=== PATIENT | male | born 1960 | race Caucasian/White ===

== ENCOUNTER 2017-01-19 05:40 | Inpatient (IN) | payer OTHER ==
[2017-01-04 12:09] VITALS: Ht 177.8 cm; Wt 94.6 kg
--- NOTE | 2017-01-04 12:43 | PAT Medication Instructions ---
Service Date Jan 04, 2017. Current Home Medication List Ascorbic Acid (Vitamin C), 1,000 MG PO QAM Aspirin (Aspirin Ec), 81 MG PO Q2D Cholecalciferol (Vitamin D3), 1 TAB PO QAM Fish Oil ([place]-3), 1 CAP PO QAM Flaxseed (Linseed) (Flaxseed Oil), 1,000 MG PO QAM Garlic (Garlic), 1 TAB PO QAM Doris (Zingiber Officinalis) (Doris Root), 550 MG PO QAM Multivitamin (Multivitamin), 1 TAB PO QAM Omeprazole (Prilosec), 40 MG PO QAM Thiamine Hcl (Vitamin B1), 250 MG PO QAM Vitamin A (Vitamin A), 8,000 UNITS PO QAM Vitamin E (Alph-E), 400 UNITS PO QAM [Folic Acid], 400 MCG PO QAM [Selenium], 200 MCG PO QAM [Zestoretic], 1 TAB PO QAM Medication Instructions For Your Scheduled Surgery - Hold the following medications 2 weeks prior to surgery: Vitamin E (Alph-E), 400 UNITS PO QAM Fish Oil ([place]-3), 1 CAP PO QAM Flaxseed (Linseed) (Flaxseed Oil), 1,000 MG PO QAM Garlic (Garlic), 1 TAB PO QAM Doris (Zingiber Officinalis) (Doris Root), 550 MG PO QAM [Selenium], 200 MCG PO QAM - Hold the following medications the morning of surgery: Ascorbic Acid (Vitamin C), 1,000 MG PO QAM [Folic Acid], 400 MCG PO QAM Cholecalciferol (Vitamin D3), 1 TAB PO QAM Thiamine Hcl (Vitamin B1), 250 MG PO QAM Vitamin A (Vitamin A), 8,000 UNITS PO QAM Multivitamin (Multivitamin), 1 TAB PO QAM [Zestoretic], 1 TAB PO QAM - Take the following medications the morning of surgery with a sip of water OTHERWISE NOTHING TO EAT OR DRINK AFTER MIDNIGHT: Aspirin (Aspirin Ec), 81 MG PO Q2D Omeprazole (Prilosec), 40 MG PO QAM If you have any questions please call us at [phone] or [phone] or [phone]
--- NOTE | 2017-01-04 13:16 | DIAGNOSTIC IMAGING REPORT ---
CHEST PREADMISSION(PA/LAT) HISTORY:56 yearsMalepreoperative exam. COMPARISON: None available. TECHNIQUE: Frontal and lateral views of the chest. FINDINGS: Cardiomediastinal and hilar silhouettes are within normal limits. There is no pneumothorax, pleural effusion, focal airspace consolidation or overt pulmonary edema. Lungs are mildly hyperinflated. Multilevel degenerative spurring involves the spine. IMPRESSION: Mild hyperinflation without acute cardiopulmonary process. The above report was generated using voice recognition software. It may contain grammatical, syntax or spelling errors. Electronically signed by: Evan Dalton M.D. 01/04/2017 1:15 PM Dictated Date/Time: 01/04/2017 1:14 PM
[2017-01-04 13:38] LABS: URINE APPEARANCE CLEAR (CLEAR); URINE BILIRUBIN NEG (NEG); URINE COLOR YELLOW; URINE NITRITE NEG (NEG); URINE PH 5.5 (4.5-7.5); URINE SPECIFIC GRAVITY 1.016 (1.000-1.030); UROBILINOGEN NEG (NEG)
[2017-01-04 13:39] LABS: BASO % 0.4 %; BASO ABS # 0.02 K/uL (0-0.2); COMPLETE YES; EOS % 3.3 %; HEMATOCRIT 45.3 % (42-52); IG% 0.6 %; LYMPH % 43.1 %; LYMPH ABS # 2.33 K/uL (1.2-3.4); MEAN CELL VOLUME 87.8 fL (80-100); MEAN CORPUSCULAR HEMOGLOBIN 30.2 pg (25-34); MEAN CORPUSCULAR HGB CONC 34.4 g/dl (32-36); MEAN PLATELET VOLUME 9.7 fL (7.4-10.4); MONO % 9.1 %; NEUT % 43.5 %; PLATELET COUNT 237 K/uL (130-400); RED BLOOD COUNT 5.16 M/uL (4.7-6.1)
[2017-01-04 13:45] LABS: MANUAL MICROSCOPIC REQUIRED? NO; REVIEW REQ? NO
[2017-01-04 14:34] LABS: BUN/CREATININE RATIO 17.3 (10-20); CALCIUM 9.2 mg/dl (8.5-10.1); POTASSIUM 3.7 mmol/L (3.5-5.1)
[~2017-01-19] VITALS: Ht 177.8 cm; Wt 94.6 kg
[2017-01-19] VITALS (13 sets, daily range): BP systolic 124–150; BP diastolic 76–94; PULSE 62–97; TEMP 36.4–36.9; O2SAT 93–98
[~2017-01-19 05:40] MED LIST: ASCO10003 PO; ASPI81TA28 PO; CHOL1000 PO; FLAX100024 PO; FOLIC ACID PO; GARL10007 PO; GING550C PO; MULT-506 PO; OMEG10007 PO; PRLSR20 PO; SELENIUM PO; THIA250T7 PO; VITA400C28 PO; VITA80005 PO; ZESTORETIC PO
[2017-01-19] MEDS ORDERED: LACTATED RINGER'S 1000ML 1,000 ML IV SCH (06:00)
[2017-01-19] MEDS ORDERED: CEFAZOLIN 2000 MG/60 ML D5W IV SCH (06:00)
[2017-01-19] MEDS ORDERED: ONDANSETRON INJ 2 MG/ML 2 ML VIAL IV PRN ×2 (06:45→10:00)
[2017-01-19] MEDS ORDERED: ATROPINE SULFATE 0.1 MG/ML 5ML SYR IV PRN (06:45)
[2017-01-19] MEDS ORDERED: EpHEDrine SULFATE INJ 50 MG/ML AMP IV PRN (06:45)
--- NOTE | 2017-01-19 07:28 | History & Physical Bridge Note ---
H&P Re-Evaluation Bridge Note: I have examined the patient, reviewed the History & Physical and in the interval since the performance of the History & Physical I have noted the following changes of clinical significance: No changes noted
--- NOTE | 2017-01-19 07:29 | History and Physical ---
History & Physical Date Jan 19, 2017. Chief Complaint neck and arm pain History of Present Illness The patient is a 56 year old male with complaints of Additional History Hepatic Disease: No Endocrine Disorder: No Kidney Disease: No Hypertension: No Heart Disease: No Bleeding Tendencies: No Infectious Diseases: No Allergies Coded Allergies: No Known Allergies (Unverified , 01/19/17) Home Medications Scheduled Ascorbic Acid (Vitamin C), 1,000 MG PO QAM Aspirin (Aspirin Ec), 81 MG PO Q2D Cholecalciferol (Vitamin D3), 1 TAB PO QAM Fish Oil ([place]-3), 1 CAP PO QAM Flaxseed (Linseed) (Flaxseed Oil), 1,000 MG PO QAM Garlic (Garlic), 1 TAB PO QAM Doris (Zingiber Officinalis) (Doris Root), 550 MG PO QAM Multivitamin (Multivitamin), 1 TAB PO QAM Omeprazole (Prilosec), 40 MG PO QAM Thiamine Hcl (Vitamin B1), 250 MG PO QAM Vitamin A (Vitamin A), 8,000 UNITS PO QAM Vitamin E (Alph-E), 400 UNITS PO QAM [Folic Acid], 400 MCG PO QAM [Selenium], 200 MCG PO QAM [Zestoretic], 1 TAB PO QAM Physical Examination Skin: warm/dry, no rash Eyes: normal inspection, EOMI, sclerae normal ENT: normal ENT inspection, pharynx normal Head: normocephalic, atraumatic Neck: supple, no adenopathy, trachea midline Respiratory/Chest: lungs clear, normal breath sounds, no respiratory distress Cardiovascular: regular rate, rhythm, no edema, no murmur Abdomen / GI: normal bowel sounds, non tender Back: normal inspection Extremities: normal inspection, normal range of motion Neurologic/Psych: no motor/sensory deficits, alert, normal reflexes, oriented x 3 Diagnosis cervical stenosis Plan of Treatment corpectomy C6 acdf C7-T1 fusion C5-T1
[2017-01-19] MEDS ORDERED: SODIUM CHLORIDE 0.9% PF 50 ML VIAL ONE (07:34)
[2017-01-19] MEDS ORDERED: BACITRACIN 50000 UNIT VIAL ONE (07:34)
[2017-01-19] MEDS ORDERED: FENTANYL CITRATE INJ 50 MCG/1 ML 2 ML VIAL ONE (07:37)
[2017-01-19] MEDS ORDERED: DEXAMETHASONE SOD INJ 4 MG/ML VIAL ONE (07:37)
[2017-01-19] MEDS ORDERED: LIDOCAINE HCL 2% 2 ML VIAL (20MG/ML) ONE (07:37)
[2017-01-19] MEDS ORDERED: NEOSTIGMINE METHYLSULFATE 1 MG/ML 10ML VIAL ONE ×2 (07:37→09:50)
[2017-01-19] MEDS ORDERED: ROCURONIUM BROMIDE 10 MG/ML 5 ML VIAL ONE (07:37)
[2017-01-19] MEDS ORDERED: ONDANSETRON INJ 2 MG/ML 2 ML VIAL ONE ×2 (07:37→09:50)
[2017-01-19] MEDS ORDERED: PROPOFOL IV EMULSION 10 MG/ML 20 ML VIAL IV ONE (07:37)
[2017-01-19] MEDS ORDERED: MIDAZOLAM HCL 1 MG/ML 2ML VIAL ONE (07:37)
[2017-01-19] MEDS ORDERED: GLYCOPYRROLATE INJ 0.2 MG/ML VIAL ONE ×2 (07:37→09:50)
[2017-01-19] MEDS ORDERED: HYDROmorphone INJ 2 MG/ML SYR/VIAL ONE ×2 (07:55→09:49)
[2017-01-19] MEDS ORDERED: FLOSEAL HEMOSTATIC MATRIX 5ML TOP ONE ×2 (09:50→09:51)
[2017-01-19] MEDS ORDERED: PHENYLEPHRINE 100MCG/ML 5ML SYR ONE (09:50)
[2017-01-19] MEDS ORDERED: NALOXONE HCL 0.4 MG/1 ML VIAL/CARP IV PRN (10:00)
[2017-01-19] MEDS ORDERED: MAGNESIUM HYDROXIDE SUSP 30 ML UDC PO PRN (10:00)
[2017-01-19] MEDS ORDERED: HYDROmorphone INJ 0.5 MG/0.5 ML SYR IV PRN (10:00)
[2017-01-19] MEDS ORDERED: DO NOT ADMINISTER FLU VACCINE PRN ×3 (10:00)
[2017-01-19] MEDS ORDERED: DO NOT ADMINISTER PNEUMOCOCCAL VACCINE PRN ×2 (10:00)
[2017-01-19] MEDS ORDERED: RACEPINEPHRINE 2.25% NEBU SOLN 0.5 ML VIAL INH PRN (10:00)
[2017-01-19] MEDS ORDERED: LORAZEPAM 0.5 MG TAB PO PRN (10:00)
[2017-01-19] MEDS ORDERED: DiphenhydrAMINE HCL 50 MG/ML VIAL IV PRN (10:00)
[2017-01-19] MEDS ORDERED: LORAZEPAM INJ 0.5 MG in SYRINGE 0.75 ML IV PRN (10:00)
[2017-01-19] MEDS ORDERED: DEXAMETHASONE INJ 8 MG in SYRINGE 0 ML IV PRN (10:00)
[2017-01-19] MEDS ORDERED: ACETAMINOPHEN IV 1,000 MG in EMPTY BAG 0 ML IV PRN (10:00)
--- NOTE | 2017-01-19 10:00 | [facility] Operative Report ---
Operative Report Operative Date Jan 19, 2017. Pre-Operative Diagnosis Cervical Spinal Stenosis Post-Operative Diagnosis Same as preoperative. Procedure(s) Performed #1 anterior cervical corpectomy bilateral foraminotomies C7. #2 anterior cervical discectomy with bilateral foraminotomies C5 6. #3 anterior cervical arthrodesis C5 6 and C6 to T1. #4 placement peek cage 7 mm at C5 6 and 27 mm C6 to T1. #5 placement of locally harvested morcellized autograft combined with Luda bone graft in the interbody cages. #6 application of jasmine plate and screws from C5 to T1. Surgeon Network Analyst Surgeon(s) Roselyn Sánchez PA-C Estimated Blood Loss 100ML Findings Severe spinal stenosis with herniated nucleus pulposus Specimens None per surgeon Description of Procedure Patient was met with preoperative early case discussed all questions are dressed. The patient was taken back to the operative suite and after undergoing successful intubation placed in the supine position on the Conrad table head in [place] import coordination and production head. The anterior cervical spine was prepped and draped in normal sterile fashion. The assistance of fluoroscopy identified the C6 7 disc space and a transverse incision was placed on the right anterior aspect of cervical spine overlying this region. Sharp dissection with the assistance of bipolar cautery performed onto an exposing the anterior cervical spine from C 5 to T1. Self-retaining retractors placed. Then performed a complete discectomy C7 T1 out to the uncovertebral joints bilaterally. And I attempted to address all of the disc herniation both in the foramina and components that had migrated cephalad elected to perform the corpectomy of C7 for adequate decompression. Socially a proceeded to perform a complete discectomy of C6 7 out to the uncovertebral joints bilaterally. [place] distracting pins were placed in C6 and T1. Complete corpectomy of C7 was then performed allowing us to adequately decompress the canal and foramina. An plates with an burden subcortical bleeding bone and a 27 mm peek cage filled with local harvested morcellized autograft and Luda bone grafting tapped in position. The distraction apparatus was removed and I proceeded to C5 6. A complete discectomy performed out to the uncovertebral joints laterally. And again include removal of all posterior inner fibrous longitudinal ligament and bilateral foraminotomies. A 7 mm peek cage filled with locally harvested morcellized autograft and Luda bone graft tapped in position. All distracting apparatus was removed all anterior osteophytes burred to smooth cortical surface and a jasmine plate and screws applied with the assistance of fluoroscopy. Incision was in copious irrigated explored to ensure there was no damage to surrounding structures remaining bleeding. A 10 round ALYSHA drain inserted. Incision then closed with 2 Vicryl in the fascia 4-0 Monocryl for final skin closure Steri-Strip sterile dressing placed patient we can taken to PACU stable condition. Please note Roselyn Antunez was present throughout the entire procedure involved in patient positioning complex portions of the procedure and final skin closure. I attest to the content of the Intraoperative Record and any orders documented therein. Any exceptions are noted below.
[2017-01-19] MEDS: FENTANYL CITRATE INJ 50 MCG/1 ML 2 ML VIAL IV PRN ×2 (10:14→10:21)
[2017-01-19] MEDS: MoRPHine SULFATE 10 MG/ML CARP/VIAL IV PRN ×3 (10:29→10:51)
--- NOTE | 2017-01-19 10:46 | DIAGNOSTIC IMAGING REPORT ---
CERVICAL 2 OR 3 VIEWS CLINICAL HISTORY: 56 years-old Male presenting with C6 CORPECTOMY, C7-T1 ACDF. TECHNIQUE: 4 fluoroscopic spot image(s) obtained as part of intraoperative procedure. COMPARISON: None. FINDINGS/IMPRESSION: Frontal and lateral views of the cervical spine obtained intraoperatively demonstrate anterior cervical discectomy and fusion of C5-T1. Interbody spacer noted at C5-6. Anatomic alignment maintained. Please see surgical report for further details. Fluoroscopy dosage (mGy): Not available. Fluoroscopy time: 21 seconds. Number of fluoroscopic spot images: 4. Electronically signed by: Rashaun Lomax M.D. 01/19/2017 10:45 AM Dictated Date/Time: 01/19/2017 10:44 AM
[2017-01-19] MEDS ORDERED: ESMOLOL HCL 10 MG/ML 10 ML VIAL ONE (10:50)
--- NOTE | 2017-01-19 11:50 | Anesthesiology Progress Note ---
Anesthesia Post Op Note Date & Time Jan 19, 2017 at 11:50 Vital Signs Pain Intensity: 4 Vital Signs Past 12 Hours Date Time Temp Pulse Resp B/P (MAP) Pulse Ox O2 Delivery O2 Flow Rate FiO2 01/19/17 11:15 68 13 132/83 94 Nasal Cannula 4 01/19/17 11:00 36.0 70 13 148/86 94 Nasal Cannula 4 01/19/17 10:50 68 13 154/94 93 Nasal Cannula 4 01/19/17 10:40 69 12 148/88 93 Nasal Cannula 4 01/19/17 10:30 75 16 155/97 93 Nasal Cannula 4 01/19/17 10:20 82 14 156/105 96 Oxymask 10 01/19/17 10:10 79 17 158/102 97 Oxymask 10 01/19/17 10:02 36.0 83 16 148/97 94 Oxymask 10 01/19/17 06:28 36.8 64 18 147/93 98 Room Air Notes Mental Status: alert / awake / arousable, participated in evaluation Pt Amnestic to Procedure: Yes Nausea / Vomiting: adequately controlled Pain: adequately controlled Airway Patency, RR, SpO2: stable & adequate BP & HR: stable & adequate Hydration State: stable & adequate Anesthetic Complications: no major complications apparent
[2017-01-19] MEDS ORDERED: HYDROmorphone INJ 1 MG/ML SYR ONE (12:16)
[2017-01-19] MEDS ORDERED: RXC5 PO (13:03)
--- NOTE | 2017-01-19 13:03 | Discharge Instructions ---
Discharge Instructions Date of Service Jan 19, 2017. Admission Reason for Admission: Spinal Stenosis Discharge Discharge Diagnosis / Problem: stenosis Discharge Goals Goal(s): Improve function Activity Recommendations Activity Limitations: per Instructions/Follow-up section . Instructions / Follow-Up Instructions / Follow-Up ACTIVITY RECOMMENDATIONS: SELF CARE INSTRUCTIONS AFTER CERVICAL FUSIONS 1. No smoking. Smoking drastically decreases the chance of a solid fusion. 2. No bending, lifting more than 5 pounds, or twisting (roll like a log when turning in bed). 3. You may shower 3 days after surgery. Thoroughly dry wound. Do not soak in the tub. 4. Cervical collar: Must be worn at all times including sleeping. You may remove the brace only to bath, eat and if you are sitting in a recliner. 5. Please walk as much as you can for exercise. Gradually increase the distance that you walk as your endurance increases. SPECIAL CARE INSTRUCTIONS: VERY IMPORTANT TO READ AND REVIEW A. Do not take any anti-inflammatory medications (i.e. Indocin, Advil, Aspirin, Naprosyn, Aleve, Motrin, etc.) as these may inhibit the chance of a solid fusion. Tylenol is okay to take. B. Your surgical incision has been closed with a cosmetic suture under the skin that will dissolve in about 6 weeks. In 14 days, you can use a pair of clean scissors and cut the suture that is left outside of the skin at the ends of your incision. C. Complications are uncommon, but please contact us if you have any signs or symptoms of: 1. wound infection (fever higher than 102.5 degrees F, redness, separation of wound, drainage, or increasing pain from the incision) 2. blood clots in legs (pain, swelling, redness and warmth in legs) 3. urinary tract infection (fever higher than 102.5 degrees, burning upon urination or increased frequency of urination) 4. nerve problems (inability to walk on your toes or heels, numbness, loss of bowel or bladder control) 5. any other symptoms that concern you. D. Please call the office at if you have any concerns or questions about your operation or recovery. MANAGING PAIN AFTER SPINAL SURGERY 1. Narcotic medication is intended for short-term use and will be provided for surgical pain. Surgical pain usually lasts for a period of 4-6 weeks. Narcotic medication includes Percocet, Vicodin, Darvocet, Tylenol #3 or Lortab. 2. Longer-term pain is more appropriately treated with non-narcotic medication such as Tylenol ES. 3. Muscle spasm is not appropriately treated with narcotics. Muscle relaxers such as Soma, Flexeril or Skelaxin can be used along with Tylenol ES. 4. Remember that we all live with some "aches and pains". This is not unusual or uncommon after an injury or as we get older. 5. We will provide appropriate medication within the normal guidelines of their prescribed use. We will also be very cautious and aware of potential abuse and extended duration of patients' medication needs. 6. Please allow 2-3 days to process refills. Prescriptions will not be mailed but must be picked up at the office. FOLLOW UP VISIT: Keep your scheduled follow-up appointment. Any questions, please call the office at . Current Hospital Diet Patient's current hospital diet: Clear Liquid Diet Discharge Diet Recommended Diet: Regular Diet Procedures Procedures Performed: #1 anterior cervical corpectomy bilateral foraminotomies C7. #2 anterior cervical discectomy with bilateral foraminotomies C5 6. #3 anterior cervical arthrodesis C5 6 and C6 to T1. #4 placement peek cage 7 mm at C5 6 and 27 mm C6 to T1. #5 placement of locally harvested morcellized autograft combined with Luda bone graft in the interbody cages. #6 application of jasmine plate and screws from C5 to T1. Pending Studies Studies pending at discharge: no Medical Emergencies . Who to Call and When: Medical Emergencies: If at any time you feel your situation is an emergency, please call 911 immediately. . Non-Emergent Contact Non-Emergency issues call your: Primary Care Provider . "Provider Documentation" section prepared by Sukhwinder Kim. . VTE Core Measure Inpt VTE Proph given/why not?: Maryam Lund, SCD's
[2017-01-19] MEDS: LACTATED RINGER'S 1000ML 1,000 ML IV SCH (13:48)
[2017-01-19] MEDS ORDERED: SCOPOLAMINE 1.5 MG TDSY TD SCH (14:00)
[2017-01-19] MEDS: CHECK SCOPOLAMINE PATCH PLACEMENT SCH ×2 (16:00→23:27)
[2017-01-19] MEDS: HYDROmorphone INJ 1 MG/ML SYR IV PRN ×2 (16:36→21:27)
[2017-01-19] MEDS: CEFAZOLIN IV 2,000 MG in DEXTROSE 5% 50ML 50 ML IV SCH ×2 (16:45→23:27)
[2017-01-19] MEDS: DEXAMETHASONE INJ 6 MG in SYRINGE 0 ML IV SCH (21:11)
[2017-01-19] MEDS: DOCUSATE SODIUM 100 MG CAP PO SCH (21:12)
[2017-01-20] VITALS (11 sets, daily range): BP systolic 123–140; BP diastolic 76–86; PULSE 60–82; TEMP 36.6–36.9; O2SAT 91–97
[2017-01-20] MEDS: LACTATED RINGER'S 1000ML 1,000 ML IV SCH (01:19)
[2017-01-20] MEDS: DEXAMETHASONE INJ 6 MG in SYRINGE 0 ML IV SCH (03:23)
[2017-01-20] MEDS: OXYCODONE HCL IR 5 MG TAB (IMMEDIATE RELEASE) PO PRN ×2 (03:23→11:16)
--- NOTE | 2017-01-20 07:42 | Anesthesiology Progress Note ---
Anesthesia Post Op Note Date & Time Jan 20, 2017 at 07:42 Vital Signs Vital Signs Past 12 Hours Date Time Temp Pulse Resp B/P (MAP) Pulse Ox O2 Delivery O2 Flow Rate FiO2 01/20/17 07:28 36.7 67 16 131/81 93 Nasal Cannula 01/20/17 07:26 67 16 91 Room Air 01/20/17 05:36 36.9 61 16 123/83 93 Nasal Cannula 2.0 01/20/17 03:29 36.7 72 17 127/83 95 Nasal Cannula 2.0 01/20/17 03:22 78 16 95 Nasal Cannula 2.0 01/20/17 01:24 36.7 66 16 134/86 94 Nasal Cannula 2.0 Humidified Air 01/19/17 23:31 Nasal Cannula 2.0 01/19/17 23:13 36.6 73 16 124/76 94 Nasal Cannula 2.0 Humidified Air 01/19/17 23:10 62 16 93 Nasal Cannula 2.0 01/19/17 21:30 36.7 72 20 142/88 96 Nasal Cannula 4.0 Humidified Oxygen 01/19/17 19:45 36.8 76 20 135/81 95 Nasal Cannula 4.0 Humidified Oxygen Notes Mental Status: alert / awake / arousable, participated in evaluation Pt Amnestic to Procedure: Yes Nausea / Vomiting: adequately controlled Pain: adequately controlled Airway Patency, RR, SpO2: stable & adequate BP & HR: stable & adequate Hydration State: stable & adequate Anesthetic Complications: no major complications apparent
[2017-01-20] MEDS: CHECK SCOPOLAMINE PATCH PLACEMENT SCH (08:00)
[2017-01-20] MEDS: DOCUSATE SODIUM 100 MG CAP PO SCH (08:38)
[2017-01-20] MEDS: CEFAZOLIN IV 2,000 MG in DEXTROSE 5% 50ML 50 ML IV SCH (08:43)
[2017-01-20] MEDS ORDERED: PANTOprazole SOD 40 MG TAB PO SCH (09:00)
--- NOTE | 2017-01-20 17:26 | Discharge Summary ---
Orthopedic Discharge Summary Admission Date/Reason Jan 19, 2017 at 07:20 Spinal Stenosis. Discharge Date/Disposition Jan 20, 2017 Home Diagnosis Principal Diagnosis: Cervical spinal stenosis Admission Physical Exam As per Admitting History & Physical. Hospital Course Patient underwent anterior cervical decompression and fusion tolerated this well and taken to the orthopedic floor postoperatively. Postoperative leash this symptoms were improving swallowing without difficulty no hoarseness. Subsequently his discharge home postoperative day 1. Discharge orders and instructions found on the chart for further review. Discharge Instructions Please refer to the electronic Patient Visit Report (Discharge Instructions) for additional information.
[2017-01-21] MEDS ORDERED: BISACODYL 10 MG SUPP PR PRN (06:00)
[2017-01-21] MEDS ORDERED: BISACODYL 5 MG TABEC PO PRN (06:00)
[2017-01-21] MEDS ORDERED: POLYETHYLENE (MIRALAX) 17 GM PACK PO SCH (09:00)
== END 2017-01-20 11:45 | disposition home or self-care (01) | DRG 473 ==
LOC: C.ACU 05:40 → C.3E 07:20 → ENRESERV 10:58
PROVIDERS: ADMIT Orthopaedic Surgery Orthopaedic Surgery of the Spine; ATTEND Orthopaedic Surgery Orthopaedic Surgery of the Spine
PROC: 0RT50ZZ Resection of Cervicothoracic Vertebral Disc, Open Approach (ICD-10-PCS; principal; 2017-01-19 07:45)
PROC: 0RG40A0 Fusion of Cervicothoracic Vertebral Joint with Interbody Fusion Device, Anterior Approach, Anterior Column, Open Approach (ICD-10-PCS; principal; 2017-01-19 07:45)
PROC: 0RT30ZZ Resection of Cervical Vertebral Disc, Open Approach (ICD-10-PCS; principal; 2017-01-19 07:45)
PROC: 0RG20A0 Fusion of 2 or more Cervical Vertebral Joints with Interbody Fusion Device, Anterior Approach, Anterior Column, Open Approach (ICD-10-PCS; principal; 2017-01-19 07:45)
DX: M48.02 Spinal stenosis, cervical region (principal); M50.20 Other cervical disc displacement, unspecified cervical region; I10 Essential (primary) hypertension; K21.9 Gastro-esophageal reflux disease without esophagitis; M19.90 Unspecified osteoarthritis, unspecified site; Z87.891 Personal history of nicotine dependence; Z79.82 Long term (current) use of aspirin; Z79.899 Other long term (current) drug therapy